=== PATIENT | female | born 2005 | race Caucasian/White ===

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

== ENCOUNTER 2024-09-30 15:57 | Emergency (ER) | payer OTHER ==
[~2024-09-30] VITALS: Ht 160 cm; Wt 61.2 kg
[~2024-09-30 15:57] MED LIST changes: +TUSICOF CAPLET1 EACH PO; +ZITHROMAX500 MG PO
[2024-09-30 17:36] VITALS: BP 124/81; O2SAT 100
[2024-09-30 18:18] LABS: BASO % 0.3 % (0.1-1.2); EOS # 0.45 (0.04-0.54); EOS % 3.9 % (0.7-7.0); LYMPH # 0.52 (1.18-3.74); LYMPH % 4.5 % (19.3-53.1); MEAN PLATELET VOLUME 10.90 fl (9.4-12.4); MONO # 0.53 (0.24-0.82); MONO % 4.5 % (4.7-12.5); NEUT # 10.10 (1.56-6.13); NEUT % 86.5 % (34.0-71.1); RED CELL DISTRIBUTION WIDTH 12.3 % (11.6-14.4)
[2024-09-30] MEDS ORDERED: AMOX1TAB5 PO (18:33)
[2024-09-30] MEDS ORDERED: LIDOCAINE HCL 1% 10ML VIAL ONE (18:59)
[2024-09-30] MEDS ORDERED: CEFTRIAXONE SODIUM 1,000 MG VIAL ONE (18:59)
[2024-09-30] MEDS ORDERED: CEFTRIAXONE SODIUM 1,000 MG VIAL IM STA (19:12)
== END 2024-09-30 19:16 | disposition home or self-care (01) ==
LOC: EMR PED 17:19 → ER 17:19 → EMR PED 19:16
DX: J03.80 Acute tonsillitis due to other specified organisms (principal)

== ENCOUNTER 2024-10-14 14:52 | Emergency (ER) | payer OTHER ==
[~2024-10-14] VITALS: Ht 160 cm; Wt 61.2 kg
[~2024-10-14 14:52] MED LIST changes: +AMOX1TAB5 PO
== END 2024-10-14 16:20 | disposition home or self-care (01) ==
LOC: ER 15:01 → EMR PED 15:01
DX: S01.332A Puncture wound without foreign body of left ear, initial encounter (principal); X58.XXXA Exposure to other specified factors, initial encounter; Y93.89 Activity, other specified; Y92.89 Other specified places as the place of occurrence of the external cause; Y99.8 Other external cause status